=== PATIENT | female | born 1995 | race Hispanic/Latino ===

== ENCOUNTER 2020-04-28 10:56 | Day surgery (SDC) | payer OTHER ==
[2020-04-28] MEDS: SODIUM CHLORIDE 0.9% 500 ML 500 ML IV SCH ×2 (12:30→14:10)
[2020-04-28] MEDS ORDERED: EPINEPHrine 1 MG/10 ML SYRINGE ONE (13:05)
[2020-04-28] MEDS ORDERED: ATROPINE 0.1% (1 MG/10 ML) CARDIAC SYRINGE ONE (13:05)
[2020-04-28] MEDS ORDERED: NITROGLYCERIN 0.4 MG TAB SUBL SL ONE (13:06)
[2020-04-28] MEDS ORDERED: ADENOSINE 6 MG/2 ML INJ ONE (13:06)
[2020-04-28 15:44] VITALS: BP 111/70
--- NOTE | 2020-04-28 21:30 | Tilt Table Report ---
TILT TABLE TEST PREPROCEDURE DIAGNOSIS: Recurrent syncope. PROCEDURE: Tilt table test. DESCRIPTION OF PROCEDURE: The patient was brought to the procedure room in a post-absorptive state. She underwent passive head up tilt-table testing with constant electrogram and blood pressure monitoring. The tilt protocol used was a baseline tilt followed by sublingual nitroglycerin. The patient was tilted to 75 degrees in an erect position. During the procedure, the patient developed symptoms of lightheadedness and diaphoresis. She became frightened and felt that she was going to pass out and acts to be laid in the supine position. The baseline heart rate was 73 beats per minute and the baseline blood pressure is 113/67 mmHg. Upon initial erect position, the patient's heart rate was 110 beats per minute and a blood pressure is 122/78 mmHg. The patient was erect for 30 minutes without symptoms. Sublingual nitroglycerin was given. Of note, during the initial 30-minute erect position, the patient's heart rate increased to 140 beats per minute. After she was given sublingual nitroglycerin, her heart rate increased to 170 beats per minute. She became significantly symptomatic and we were unable to obtain a blood pressure. After being laid in the supine position, her heart rate decreased to 117 beats per minute and her initial blood pressure was 88/42 mmHg. COMPLICATIONS: None. IMPRESSION: Positive tilt table test consistent with POTS syndrome. PLAN: Follow up with Cardiology as an outpatient. JOB# [id number] MMW/NTS
== END 2020-04-28 14:45 | disposition home or self-care (01) ==
LOC: CATHLABREC 10:56
PROVIDERS: ATTEND Internal Medicine Cardiovascular Disease
DX: R55 Syncope and collapse (principal); I49.8 Other specified cardiac arrhythmias; K21.9 Gastro-esophageal reflux disease without esophagitis; Z88.8 Allergy status to other drugs, medicaments and biological substances; Z79.899 Other long term (current) drug therapy; Z98.890 Other specified postprocedural states; Z80.8 Family history of malignant neoplasm of other organs or systems; Z82.61 Family history of arthritis; Z82.49 Family history of ischemic heart disease and other diseases of the circulatory system
CPT/HCPCS: 93660; J7040; J0153; J0171; J0461